=== PATIENT | male | born 1995 ===

== ENCOUNTER → 2022-05-29 | Outpatient (CLI) | payer OTHER | LOC: COL.VAS 05-22 08:15 | DX: G47.34 Idiopathic sleep related nonobstructive alveolar hypoventilation (principal) ==

== ENCOUNTER → 2022-08-17 | Outpatient (CLI) | payer OTHER | LOC: COL.PUL 09:45 | DX: R06.02 Shortness of breath (principal) | CPT/HCPCS: J7674 ==